=== PATIENT | female | born 1990 | race Caucasian/White ===

== ENCOUNTER 2020-10-07 15:22 | Observation (INO) | payer OTHER ==
[~2020-10-07] VITALS: Ht 157.5 cm; Wt 97.1 kg
[2020-10-07 16:48] LABS: BASOPHILS % (AUTO) 0.2 % (0.0-2.0); EOSINOPHILS # (AUTO) 0.2 K/uL (0-0.4); EOSINOPHILS % (AUTO) 1.3 % (0.0-4.0); HEMATOCRIT 36.7 % (36-48); HEMOGLOBIN 12.3 g/dL (12.0-16.0); LYMPHOCYTES # (AUTO) 1.8 K/uL (2.5-16.5); LYMPHOCYTES % (AUTO) 13.5 % (20.5-51.1); MEAN CORPUSCULAR HEMOGLOBIN 31 pg (27-31); MEAN CORPUSCULAR HGB CONC 33 g/dL (33-37); MONOCYTES % (AUTO) 7.6 % (1.7-9.3); NEUTROPHILS # (AUTO) 10.2 K/uL (1.8-7.7); NEUTROPHILS % (AUTO) 77.4 % (42.2-75.2); PLATELET COUNT (AUTO) 181 K/uL (140-450); RED BLOOD CELL COUNT(AUTO) 3.95 MIL/uL (4.20-5.40); WHITE BLOOD COUNT (AUTO) 13.2 K/uL (4.8-10.8)
[2020-10-07 17:14] LABS: PROTHROMBIN TIME 9.3 secs (10.8-13.4)
[2020-10-07 17:16] LABS: ALBUMIN 2.6 g/dL (3.4-5.0); ANION GAP 13.9 (8-16); CARBON DIOXIDE 21.9 mmol/L (21-32); CREATININE 0.6 mg/dL (0.6-1.3); POTASSIUM 3.8 mmol/L (3.5-5.1); TOTAL BILIRUBIN 0.3 mg/dL (0.0-1.0)
[2020-10-07 17:42] LABS: APPEARANCE,URINE CLEAR (CLEAR); BILIRUBIN,URINE NEGATIVE (NEGATIVE); BLOOD, URINE TRACE-I (NEGATIVE); COLOR,URINE YELLOW (YELLOW); LEUKOCYTE ESTERASE ,URINE NEGATIVE (NEGATIVE); NITRITE, URINE NEGATIVE (NEGATIVE); UGLUCOSE NEGATIVE (NEGATIVE)
[2020-10-07 17:47] LABS: BARBITURATE, URINE NEGATIVE ng/ml (NEG <=200); BENZODIAZEPINE, URINE NEGATIVE ng/mL (NEG <=200); CANNABINOID, URINE NEGATIVE ng/mL (NEG <=50); COCAINE, URINE NEGATIVE ng/mL (NEG <=300); OPIATE, URINE NEGATIVE ng/mL (NEG <=2000); PHENCYCLIDINE SCREEN,URINE NEGATIVE ng/mL (NEG <=25)
[2020-10-07 17:56] LABS: RBC,URINE 0-5 /HPF (0-5); WBC,URINE NONE SEEN /HPF (0-5)
[2020-10-08] MEDS ORDERED: PNV91TAB8 PO (06:31)
== END 2020-10-07 17:00 | disposition home or self-care (01) ==
LOC: MLD 15:22
PROVIDERS: ADMIT Obstetrics & Gynecology; ATTEND Obstetrics & Gynecology
DX: O36.8130 Decreased fetal movements, third trimester, not applicable or unspecified (principal); O62.9 Abnormality of forces of labor, unspecified; Z3A.39 39 weeks gestation of pregnancy
CPT/HCPCS: 36415; 59025; 76819; 80053; 80305; 81001; 85025; 85610; 85730; 86592; 86703; 86762; 86886; 86900; 86901; 87340; 87426; 87653; G0378

== ENCOUNTER 2020-10-08 05:14 | Inpatient (IN) | payer OTHER ==
[~2020-10-08] VITALS: Ht 157.5 cm; Wt 97.1 kg
[2020-10-08] MEDS ORDERED: LACTATED RINGERS 1,000 ML IV SCH (05:50)
[2020-10-08] MEDS ORDERED: METHYLERGONOVINE 0.2 MG/ML AMP IM PRN ×2 (05:50→08:45)
[2020-10-08] MEDS ORDERED: CITRIC ACID/SODIUM CITRATE 30 ML UDC PO SCH (05:50)
[2020-10-08] MEDS ORDERED: ceFAZolin 1,000 MG VIAL ONE (06:13)
[2020-10-08] MEDS ORDERED: CITRIC ACID/SODIUM CITRATE 30 ML UDC ONE (06:14)
[2020-10-08 06:31] VITALS: BP 123/68
[2020-10-08] MEDS ORDERED: PNV91TAB8 PO (06:31)
[2020-10-08] MEDS ORDERED: fentaNYL citrate 0.05 MG/ML VIAL ONE (07:19)
[2020-10-08] MEDS ORDERED: MORPHINE PRES FREE 10 MG/10 ML AMP IV ONE ×2 (07:19→07:38)
[2020-10-08] MEDS ORDERED: MIDAZOLAM 2 MG/2 ML VIAL ONE (07:19)
[2020-10-08] MEDS ORDERED: METOCLOPRAMIDE 10 MG/2 ML INJ VIAL ONE (07:38)
[2020-10-08] MEDS ORDERED: PHENYLEPHRINE 10 MG/ML VIAL ONE (07:38)
[2020-10-08] MEDS ORDERED: DEXAMETHASONE 4 MG/ML VIAL ONE (07:38)
--- NOTE | 2020-10-08 08:05 | NUR ---
ARRIVED INITIALLY AT 0730 FOR SCHED . AT DELIVERY BABY CAME OUT SCREAMING - AUDIBLE CRIES. BABY WAS BREATHING WO DIFFICULTY, BILAT CHEST RISE AND FALL. RN BROUGHT BABY TO MOM FOR VIEWING BEFORE TAKING BABY TO NURS FOR WEIGHT AND BATHING. NO ISSUES BEFORE, DURING, OR AFTER DELIVERY.
[2020-10-08] MEDS ORDERED: OXYTOCIN 20 UNITS/LR PREMIX 1,000 ML IV ONE ×2 (08:19→20:37)
[2020-10-08] MEDS ORDERED: OXYTOCIN 20 UNITS in LACTATED RINGERS 1,000 ML IV SCH (08:25)
[2020-10-08] MEDS ORDERED: ONDANSETRON 4 MG/2 ML VIAL IVP PRN ×2 (08:25→08:55)
[2020-10-08] MEDS ORDERED: fentaNYL citrate 0.05 MG/ML VIAL IVP PRN (08:25)
[2020-10-08] MEDS ORDERED: diphenhydrAMINE 50 MG/ML VIAL IVP PRN ×2 (08:25→08:55)
[2020-10-08] MEDS ORDERED: MEPERIDINE 25 MG/ML SYR IVP PRN (08:25)
[2020-10-08] MEDS: OXYTOCIN 20 UNITS in LACTATED RINGERS 1,000 ML IV SCH ×2 (08:44→20:46)
[2020-10-08] MEDS ORDERED: oxyCODONE/APAP 5/325 MG 1 TAB TAB PO PRN (08:45)
[2020-10-08] MEDS ORDERED: PROMETHAZINE 25 MG/ML VIAL IVP PRN (08:45)
[2020-10-08] MEDS ORDERED: MEASLES, MUMPS, AND RUBELLA 1 VIAL SQVAC ONE (08:45)
[2020-10-08] MEDS ORDERED: NALOXONE 0.4 MG/ML VIAL IVP PRN ×2 (08:55)
[2020-10-08] MEDS ORDERED: bisacodyL 10 MG SUPP RC SCH (09:00)
--- NOTE | 2020-10-08 09:19 | NUR ---
PATIENT HAS BEEN SCREENED AND CATEGORIZED LOW NUTRITION RISK. PATIENT WILL BE SEEN WITHIN 7 DAYS OF ADMISSION. 10/14/[address]
[2020-10-08] MEDS ORDERED: KETOROLAC 30 MG/ML VIAL IM/IVP SCH (12:00)
[2020-10-08] MEDS: KETOROLAC 30 MG/ML VIAL IVP SCH (17:50)
[2020-10-09] MEDS: KETOROLAC 30 MG/ML VIAL IVP SCH ×2 (00:36→06:12)
[2020-10-09] MEDS ORDERED: OXYTOCIN 20 UNITS/LR PREMIX 1,000 ML IV ONE (03:56)
[2020-10-09] MEDS: OXYTOCIN 20 UNITS in LACTATED RINGERS 1,000 ML IV SCH (04:02)
[2020-10-09] MEDS ORDERED: CAMERA MC ONE ×2 (05:47→19:41)
[2020-10-09 05:56] LABS: BASOPHILS % (AUTO) 0.1 % (0.0-2.0); EOSINOPHILS # (AUTO) 0.1 K/uL (0-0.4); EOSINOPHILS % (AUTO) 0.7 % (0.0-4.0); HEMATOCRIT 31.9 % (36-48); HEMOGLOBIN 10.7 g/dL (12.0-16.0); LYMPHOCYTES # (AUTO) 1.7 K/uL (2.5-16.5); LYMPHOCYTES % (AUTO) 12.2 % (20.5-51.1); MEAN CORPUSCULAR HEMOGLOBIN 31 pg (27-31); MEAN CORPUSCULAR HGB CONC 34 g/dL (33-37); MEAN CORPUSCULAR VOLUME 92.6 fL (80-94); MONOCYTES # (AUTO) 1.1 K/uL (0.8-1.0); MONOCYTES % (AUTO) 7.5 % (1.7-9.3); NEUTROPHILS # (AUTO) 11.4 K/uL (1.8-7.7); NEUTROPHILS % (AUTO) 79.5 % (42.2-75.2); PLATELET COUNT (AUTO) 155 K/uL (140-450); RED BLOOD CELL COUNT(AUTO) 3.44 MIL/uL (4.20-5.40); RED CELL DISTRIBUTION WIDTH 13.3 % (11.6-13.7); WHITE BLOOD COUNT (AUTO) 14.4 K/uL (4.8-10.8)
[2020-10-09] MEDS: IBUPROFEN 800 MG TAB PO PRN (20:30)
[2020-10-10] MEDS: SIMETHICONE 80 MG TAB.CHEW PO PRN (09:58)
[2020-10-10] MEDS: IBUPROFEN 800 MG TAB PO PRN ×2 (09:58→17:55)
[2020-10-11] MEDS ORDERED: CAMERA MC ONE (02:11)
[2020-10-11] MEDS: IBUPROFEN 800 MG TAB PO PRN (03:48)
[2020-10-11] MEDS: SIMETHICONE 80 MG TAB.CHEW PO PRN (09:00)
== END 2020-10-11 13:05 | disposition home or self-care (01) | DRG 540 ==
LOC: MLD 05:14 → MFCC 09:35
PROVIDERS: ADMIT Obstetrics & Gynecology; ATTEND Obstetrics & Gynecology
PROC: 3E0234Z Introduction of Serum, Toxoid and Vaccine into Muscle, Percutaneous Approach (ICD-10-PCS; 2020-10-08)
PROC: 3E0134Z Introduction of Serum, Toxoid and Vaccine into Subcutaneous Tissue, Percutaneous Approach (ICD-10-PCS; 2020-10-08)
PROC: 10D00Z1 Extraction of Products of Conception, Low, Open Approach (ICD-10-PCS; principal; 2020-10-08 07:30)
DX: O34.211 Maternal care for low transverse scar from previous cesarean delivery (principal); Z23 Encounter for immunization; Z37.0 Single live birth; Z3A.39 39 weeks gestation of pregnancy
CPT/HCPCS: 36415; 51702; 82948; 85025; J0690; J1100; J1885; J2250; J2270; J2370; J2590; J2765; J3010; J7120